=== PATIENT | female | born 2000 | race Caucasian/White ===

== ENCOUNTER 2024-06-12 19:50 | Emergency (ER) | payer SELFPAY ==
[~2024-06-12] VITALS: Ht 167.6 cm; Wt 59.0 kg
[2024-06-12 20:07] VITALS: O2SAT 99
[2024-06-12] MEDS: METHOCARBAMOL 500MG TABLET PO ONE (20:29)
[2024-06-12] MEDS: IBUPROFEN 600MG TABLET PO ONE (20:29)
[2024-06-12] MEDS ORDERED: IBUP-2029 MT (21:04)
[2024-06-12] MEDS ORDERED: METH-653 MT (21:04)
[2024-06-12 21:30] VITALS: BP 109/77; PULSE 85; RESP 20; TEMP 98.6
== END 2024-06-12 21:30 | disposition home or self-care (01) ==
LOC: ER 19:50
DX: S43.491A Other sprain of right shoulder joint, initial encounter (principal); S29.012A Strain of muscle and tendon of back wall of thorax, initial encounter; V98.8XXA Other specified transport accidents, initial encounter; Y93.89 Activity, other specified; Y92.89 Other specified places as the place of occurrence of the external cause; Y99.8 Other external cause status
CPT/HCPCS: 71045; 73030; 99284